=== PATIENT | male | born 1985 | race Caucasian/White ===

== ENCOUNTER 2018-07-21 07:28 | Emergency (ER) | payer SELFPAY ==
[2018-07-21 07:38] VITALS: BP 141/91; PULSE 78; RESP 18; TEMP 36.6; O2SAT 100; BMI 25.0
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
--- NOTE | 2018-07-21 07:55 | PC.NURSE ---
Pt is given water and is resting in room. We request he gives a urine specimen when he can. unclear medical history but states Im supposed to have a mental health exam soon.
[2018-07-21 08:39] LABS: Urine Amphetamines Positive (Negative); Urine Barbiturates Negative (Negative); Urine Benzodiazepines Negative (Negative); Urine Cocaine Negative (Negative); Urine MDMA Negative (Negative); Urine Methadone Negative (Negative); Urine Methamphetamines Positive (Negative); Urine Morphine/Opi cutoff 2000 Negative (Negative); Urine Oxycodone Negative (Negative); Urine Phencyclidine Negative (Negative); Urine Tetrahydrocannabinol Positive (Negative); Urine Tricyclic Antidepressant Negative (Negative)
[2018-07-21] MEDS: LORazepam 2 MG/ML SYRINGE 1 MG IM (09:20)
--- NOTE | 2018-07-21 09:21 | PC.NURSE ---
Brought patient a breakfast tray and plugged his cell phone in to charge
[2018-07-21 09:40] VITALS: BP 139/87; PULSE 94; RESP 18; O2SAT 100
== END 2018-07-21 09:46 | disposition home or self-care (01) ==
LOC: ED 09:11
PROVIDERS: Emergency Provider Emergency Medicine
DX: F41.9 Anxiety disorder, unspecified (principal); F22 Delusional disorders
CPT/HCPCS: 80305; 96372; 99282; 99283; J2060